=== PATIENT | male | born 1965 | race Hispanic/Latino ===

== ENCOUNTER 2018-01-05 03:52 | Emergency (ER) | payer MEDICAID, SELFPAY ==
[2018-01-05 03:59] VITALS: BMI 32.9
[2018-01-05 04:03] VITALS: TEMP 97.4
[2018-01-05] MEDS ORDERED: Lidocaine 2% Inj (20ml) SC STA (04:08)
[2018-01-05] MEDS ORDERED: Oxymetazoline 0.05% Nasal Spray (30 ml) NS STA ×2 (04:08→04:22)
--- NOTE | 2018-01-05 04:11 | ED PDOC ---
Arrival/HPI - General Chief Complaint: ENT Problem Time Seen by Provider: 01/05/18 03:59 Historian: Patient - History of Present Illness Narrative History of Present Illness (Text): 01/05/18 04:08 52 year old male, with no significant past medical history, who presents to the emergency department complaining of a persistent nosebleed. Patient notes yesterday morning he had a nosebleed that stopped after 30 minutes. 2 hours ago , patient had a nosebleed that didn't stop quickly. Patient denies any drug use , fever, chills, chest pain, headache, dizziness, or any other complaints. Time/Duration: 1-3 hours Symptom Onset: Sudden Symptom Course: Unchanged Activities at Onset: Light Context: Home Past Medical History - Provider Review Nursing Documentation Reviewed: Yes - Cardiac Hx Hypertension: Yes - Pulmonary Hx Respiratory Disorders: No - Neurological Hx Neurological Disorder: No - HEENT Hx HEENT Disorder: No - Renal Hx Renal Disorder: No - Endocrine/Metabolic Hx Endocrine Disorders: No - Hematological/Oncological Hx Blood Disorders: No - Integumentary Hx Dermatological Disorder: No - Musculoskeletal/Rheumatological Hx Musculoskeletal Disorders: No - Gastrointestinal Hx Gastrointestinal Disorders: No - Genitourinary/Gynecological Hx Genitourinary Disorders: No - Psychiatric Hx Psychophysiologic Disorder: No Hx Substance Use: No - Anesthesia Hx Anesthesia: No Family/Social History - Physician Review Nursing Documentation Reviewed: Yes Family/Social History: Unknown Family HX Smoking Status: Light Smoker < 10 Cigarettes Daily Hx Alcohol Use: No Hx Substance Use: No Allergies/Home Meds Allergies/Adverse Reactions: Allergies No Known Allergies Allergy (Verified 01/05/18 03:57) Home Medications: Home Meds Medication Instructions Recorded Confirmed Cholesterol Medication 01/05/18 Review of Systems - Physician Review All systems were reviewed & negative as marked: Yes - Review of Systems Constitutional: Normal Eyes: Normal ENT: Epistaxis Respiratory: Normal. absent: SOB, Cough Cardiovascular: Normal. absent: Chest Pain Gastrointestinal: Normal. absent: Abdominal Pain, Diarrhea, Nausea, Vomiting Genitourinary Male: Normal. absent: Dysuria, Frequency, Hematuria, Urinary Output Changes Musculoskeletal: Normal. absent: Back Pain, Neck Pain Skin: Normal. absent: Rash Neurological: Normal. absent: Headache, Dizziness Endocrine: Normal Hemo/Lymphatic: Normal Psychiatric: Normal Physical Exam Vital Signs Reviewed: Yes Vital Signs Temp Pulse Resp BP Pulse Ox 01/05/18 03:57 97.4 F L 78 16 142/97 H 98 Temperature: Febrile Blood Pressure: Hypertensive Pulse: Regular Respiratory Rate: Normal Appearance: Positive for: Well-Appearing, Non-Toxic, Comfortable Pain Distress: None Mental Status: Positive for: Alert and Oriented X 3 - Systems Exam Head: Present: Atraumatic, Normocephalic Pupils: Present: PERRL Extroacular Muscles: Present: EOMI Conjunctiva: Present: Normal Mouth: Present: Moist Mucous Membranes Nose (Internal): Present: Other (trace of dry blood Lft nare). No: No Active Bleeding, Septal Hematoma Neck: Present: Normal Range of Motion. No: Meningeal Signs, MIDLINE TENDERNESS , Paraspinal Tenderness, JVD Respiratory/Chest: Present: Clear to Auscultation, Good Air Exchange. No: Respiratory Distress, Accessory Muscle Use Cardiovascular: Present: Regular Rate and Rhythm, Normal S1, S2. No: Murmurs Abdomen: No: Tenderness, Distention, Peritoneal Signs Back: Present: Normal Inspection Upper Extremity: Present: Normal Inspection. No: Cyanosis, Edema Lower Extremity: Present: Normal Inspection. No: Edema Neurological: Present: GCS=15, CN II-XII Intact, Speech Normal Skin: Present: Warm, Dry, Normal Color. No: Rashes Psychiatric: Present: Alert, Oriented x 3, Normal Insight, Normal Concentration Medical Decision Making ED Course and Treatment: 01/05/18 04:13 Impression: 52 year old male presents to the emergency department with persistent nosebleed. Plan: -- Lidocaine -- Afrin -- Reassess and disposition Progress Notes: 01/05/18 05:16 Afrin and lidocaine were placed in cotton 1:1 ratio. Patient had cotton placed in left nare. After some time with cotton in nare, I reevaluated the patient. There was no bleeding in his right or left nostril. No septal hematoma. Patient was given nasal precautions and the afrin spray and advised to follow up with pmd and ENT Dr. Engle. - Medication Orders Current Medication Orders: Discontinued Medications Lidocaine HCl (Lidocaine 2% 20ml Vial) 0 ml SC ONCE STA Stop: 01/05/18 04:09 Last Admin: 01/05/18 04:44 Dose: Oxymetazoline HCl (Afrin 0.05%) 1 ml NS STAT STA Stop: 01/05/18 04:23 Last Admin: 01/05/18 04:43 Dose: - Scribe Statement The provider has reviewed the documentation as recorded by the Scribe Monica Woo All medical record entries made by the Scribe were at my direction and personally dictated by me. I have reviewed the chart and agree that the record accurately reflects my personal performance of the history, physical exam, medical decision making, and the department course for this patient. I have also personally directed, reviewed, and agree with the discharge instructions and disposition. Disposition/Present on Arrival - Present on Arrival Any Indicators Present on Arrival: No History of DVT/PE: No History of Uncontrolled Diabetes: No Urinary Catheter: No History of Decub. Ulcer: No History Surgical Site Infection Following: None - Disposition Have Diagnosis and Disposition been Completed?: Yes Diagnosis: Nosebleed Disposition: HOME/ ROUTINE Disposition Time: 05:19 Patient Plan: Discharge Patient Problems: Current Active Problems Problem Status Onset Nosebleed Acute Condition: IMPROVED Discharge Instructions (ExitCare): Nosebleeds Additional Instructions: Ms Houston, thank you for letting us take care of you today. Your provider was Dr. Gee. You were treated for Nose bleed. The emergency medical care you received today was directed at your acute symptoms. If you were prescribed any medication, please fill it and take as directed. It may take several days for your symptoms to resolve. Return to the Emergency Department if your symptoms worsen, do not improve, or if you have any other problems. Please contact your doctor or call one of the physicians/clinics you have been referred to that are listed on the Patient Visit Information form that is included in your discharge packet. Bring any paperwork you were given at discharge with you along with any medications you are taking to your follow up visit. Our treatment cannot replace ongoing medical care by a primary care provider (PCP) outside of the emergency department. Thank you for allowing the [facility] team to be part of your care today. If you had an X-Ray or CT scan: A Radiologist will review the ED reading if any change in treatment is needed we will contact you. If you had a blood, urine, or wound culture: It will take several days for the results, if any change in treatment is needed we will contact you. If you had an STI test: It will take 48 hours for the results. Please call after 1 week if you have not heard back. Referrals: Hattie Butler MD [Primary Care Provider] - Follow up with primary Vick Engle DO [Staff Provider] - Follow up with primary Forms: [facility] (Welsh), WORK NOTE
[2018-01-05 05:44] VITALS: BP 140/97; PULSE 75; RESP 18; O2SAT 100
== END 2018-01-05 05:20 | disposition home or self-care (01) ==
LOC: ED 03:52
DX: R04.0 Epistaxis (principal); I10 Essential (primary) hypertension; F17.210 Nicotine dependence, cigarettes, uncomplicated